=== PATIENT | female | born 1990 | race African-American/Black ===

== ENCOUNTER 2018-01-10 03:28 | Emergency (ER) | payer MEDICAID ==
[~2018-01-10] VITALS: Ht 172.7 cm; Wt 146.0 kg
[2018-01-10 06:25] LABS: BASOPHILS % 1.4 % (0.0-2.0); EOSINOPHILS % 2.6 % (0.0-5.0); HEMATOCRIT. 37.2 % (36.0-48.0); HEMOGLOBIN. 12.4 g/dL (12.0-16.0); LYMPHOCYTES % 39.3 % (20.0-50.0); MEAN CORPUSCULAR HEMOGLOBIN 27.2 pg (28.0-32.0); MEAN PLATELET VOLUME 9.4 fl (7.4-10.4); MONOCYTES % 6.7 % (2.0-8.0); PLATELET 241 x1000/uL (130-400); RED BLOOD CELL COUNT 4.54 mill/uL (4.2-5.4)
[2018-01-10 06:32] LABS: CHLORIDE 108 mEq/L (98-107)
[2018-01-10 06:34] LABS: INR 1.1; PROTHROMBIN TIME 11.4 sec (9.4-11.6)
[2018-01-10 06:56] LABS: B-HCG QUANTITATIVE 60414 mIU/mL (<3)
[2018-01-10 07:14] LABS: KETONES URINE NEGATIVE (NEGATIVE); LEUKOCYTE ESTERASE URINE NEGATIVE (NEGATIVE); NITRITE URINE NEGATIVE (NEGATIVE); OCCULT BLOOD URINE 3+ (NEGATIVE); PROTEIN URINE 1+ (NEGATIVE); SPECIFIC GRAVITY URINE 1.018 (1.005-1.030)
[2018-01-10 07:16] LABS: CLARITY URINE CLOUDY (CLEAR); COLOR URINE BLOODY (YELLOW)
[2018-01-10 07:42] VITALS: BP 123/58
== END 2018-01-10 08:26 | disposition home or self-care (01) ==
LOC: ER 03:46
DX: O46.8X1 Other antepartum hemorrhage, first trimester (principal); Z3A.08 8 weeks gestation of pregnancy
CPT/HCPCS: 36415; 76801; 76817; 80053; 81003; 81025; 83690; 84702; 85025; 85610; 86850; 86900; 86901; 99285; Z7610

== ENCOUNTER 2021-08-27 17:30 | Emergency (ER) | payer MEDICAID ==
[~2021-08-27] VITALS: Ht 172.7 cm; Wt 159.0 kg
[2021-08-27] MEDS ORDERED: KETOROLAC 60MG/2ML VIAL IM ONE (17:45)
[2021-08-27 21:01] LABS: BASOPHILS % 0.8 % (0.0-2.0); EOSINOPHILS % 1.9 % (0.0-5.0); HEMOGLOBIN. 13.2 g/dL (12.0-16.0); LYMPHOCYTES % 37.4 % (20.0-50.0); MEAN CORPUSCULAR HEMOGLOBIN 27.2 pg (28.0-32.0); MEAN PLATELET VOLUME 8.8 fl (7.4-10.4); MONOCYTES % 8.2 % (2.0-8.0); NEUTROPHILS % 51.7 % (40.0-76.0); PLATELET 286 x1000/uL (130-400); RED BLOOD CELL COUNT 4.87 mill/uL (4.2-5.4); RED CELL DISTRIBUTION WIDTH 14.5 % (11.6-14.6)
[2021-08-27 21:04] LABS: CHLORIDE 108 mEq/L (98-107)
[2021-08-27] MEDS: KETOROLAC 60MG/2ML VIAL IM NR ×2 (23:45→23:58)
[2021-08-27 23:58] LABS: CLARITY URINE CLEAR (CLEAR); COLOR URINE YELLOW (YELLOW); KETONES URINE NEGATIVE (NEGATIVE); LEUKOCYTE ESTERASE URINE NEGATIVE (NEGATIVE); NITRITE URINE NEGATIVE (NEGATIVE); OCCULT BLOOD URINE NEGATIVE (NEGATIVE); PH URINE 7.5 (4.5-8.0); PROTEIN URINE NEGATIVE (NEGATIVE); SPECIFIC GRAVITY URINE 1.015 (1.005-1.030)
[2021-08-28] MEDS ORDERED: IBUP-2029 MT (03:20)
[2021-08-28 03:30] VITALS: BP 144/73
== END 2021-08-28 03:38 | disposition home or self-care (01) ==
LOC: ER 17:30
DX: N70.11 Chronic salpingitis (principal); Z98.890 Other specified postprocedural states
CPT/HCPCS: 36415; 76830; 76856; 80053; 81003; 81025; 85025; 96372; 99284